=== PATIENT | male | born 2000 | race Caucasian/White ===

== ENCOUNTER 2024-02-10 15:35 | Emergency (ER) | payer SELFPAY ==
[2024-02-10 15:54] VITALS: BP 118/67; PULSE 51; RESP 18; TEMP 98.4; BMI 22.9
== END 2024-02-10 16:20 | disposition home or self-care (01) ==
LOC: FER 15:35
DX: M79.605 Pain in left leg (principal); H10.32 Unspecified acute conjunctivitis, left eye; M79.18 Myalgia, other site; H57.89 Other specified disorders of eye and adnexa
CPT/HCPCS: 99283-25